=== PATIENT | female | born 1990 | race Caucasian/White ===

== ENCOUNTER 2021-12-06 07:49 | Inpatient (IN) ==
[2021-12-06] MEDS ORDERED: Buffered Lidocaine 1% SYRIN 1 ml INTRADERM ONE (08:26)
[2021-12-06] MEDS ORDERED: Lactated Ringers 1000 ml BAG 1,000 ML IV ONE (08:26)
[2021-12-06] MEDS ORDERED: Oxytocin 10 UNITS/ML 1 ML VIAL IM ONE (12:30)
[2021-12-06] MEDS ORDERED: Oxytocin in LR 20 UNITS/1,000 ML BAG IVPB SCH ×3 (13:08→14:00)
[2021-12-06 13:28] LABS: ABS Lymphocytes 0.7 10^3/ul (1.0-4.8); ABS Monocytes 0.6 10^3/ul (0-0.8); ABS Neutrophils 18.1 10^3/ul (1.5-7.7); Hematocrit 37 % (35-47); Hemoglobin 12.4 g/dL (12.0-16.0); Lymphocyte % 3.6 %; Mean Corpuscular HGB Conc 33 g/dL (31-36); Mean Corpuscular Hemoglobin 31 pg (27-31); Mean Corpuscular Volume 92 fL (80-97); Mean Platelet Volume 10.5 fL (7.4-10.4); Platelet Count 211 10^3/uL (150-450); Red Blood Count 4.03 10^6 /uL (3.70-4.87); Red Cell Distribution Width 13 % (10-15); White Blood Count 19.5 10^3/uL (3.5-10.8)
[2021-12-06] MEDS ORDERED: Lactated Ringers 1000 ml BAG 1,000 ML IV SCH (14:00)
[2021-12-06] MEDS: Dibucaine 1% OINT 28.35 GM TUBE PR PRN (14:11)
[2021-12-06] MEDS: Witch Hazel PAD JAR TOPICAL PRN (14:11)
[2021-12-07 06:52] LABS: ABS Basophils 0.1 10^3/ul (0-0.2); ABS Lymphocytes 1.5 10^3/ul (1.0-4.8); ABS Monocytes 0.7 10^3/ul (0-0.8); ABS Neutrophils 7.6 10^3/ul (1.5-7.7); Eosinophil % 0.4 %; Hematocrit 30 % (35-47); Hemoglobin 10.4 g/dL (12.0-16.0); Lymphocyte % 15.4 %; Mean Corpuscular HGB Conc 35 g/dL (31-36); Mean Corpuscular Hemoglobin 32 pg (27-31); Mean Corpuscular Volume 92 fL (80-97); Mean Platelet Volume 9.6 fL (7.4-10.4); Platelet Count 162 10^3/uL (150-450); Red Blood Count 3.25 10^6 /uL (3.70-4.87); Red Cell Distribution Width 13 % (10-15); White Blood Count 9.9 10^3/uL (3.5-10.8)
[2021-12-07] MEDS ORDERED: SERTRALINE PO SCH (09:00)
[2021-12-07] MEDS: Witch Hazel PAD JAR TOPICAL PRN (20:14)
[2021-12-07] MEDS: Dibucaine 1% OINT 28.35 GM TUBE PR PRN (20:14)
[2021-12-08 08:08] VITALS: BP 114/77
== END 2021-12-08 11:30 | disposition home or self-care (01) | DRG 560 ==
LOC: MCHOBOUT 07:49 → MCHOB 08:17
PROVIDERS: ADMIT Advanced Practice Midwife; ATTEND Advanced Practice Midwife

== ENCOUNTER 2023-12-20 09:44 | Inpatient (IN) ==
[2023-12-20] MEDS ORDERED: Buffered Lidocaine 1% SYRIN 1 ml INTRADERM ONE (10:42)
[2023-12-20] MEDS ORDERED: Prochlorperazine 5 mg/ml 2 ml VIAL (10 mg) IV PRN (10:42)
[2023-12-20] MEDS ORDERED: Lidocaine 1% VIAL 10 MG/ML 30 ML VIAL INJ PRN (10:42)
[2023-12-20] MEDS: Lactated Ringers 1000 ml BAG 1,000 ML IV ONE (11:12)
[2023-12-20 11:24] LABS: ABS Eosinophils 0.1 10^3/uL (0.0-0.5); ABS Lymphocytes 1.5 10^3/uL (1.0-4.8); ABS Monocytes 0.5 10^3/uL (0.0-0.9); ABS Neutrophils 7.6 10^3/uL (1.5-7.6); ABS Nucleated RBC 0.01 10^3/ul; Eosinophil % 0.6 %; Hematocrit 35.6 % (35-45); Hemoglobin 11.8 g/dL (11.5-14.3); Lymphocyte % 15.1 %; Mean Corpuscular Hemoglobin 29.5 pg (27-33); Mean Corpuscular Volume 89.3 fL (80-97); Mean Platelet Volume 10.2 fL (7.5-11.2); Nucleated Red Blood Cells % 0.1 %/100WBC (0.0-0.8); Platelet Count 180 10^3/uL (150-450); Red Blood Count 3.99 10^6/uL (3.63-4.92); Red Cell Distribution Width 13.2 % (12-17); White Blood Count 9.7 10^3/uL (3.8-11.8)
[2023-12-20] MEDS ORDERED: OBEPIDURAL (200 ML) 200 ML EPIDURAL ONE (11:24)
[2023-12-20] MEDS ORDERED: Lidocaine 1.5% EPI 1:200,000 30 ML SDV ONE (11:25)
[2023-12-20] MEDS: Lactated Ringers 1000 ml BAG 1,000 ML IV SCH (11:57)
[2023-12-20] MEDS: OBEPIDURAL (200 ML) 200 ML EPIDURAL SCH (11:59)
[2023-12-20 12:05] LABS: Urine Benzodiazepine Screen None Detected (None Detect); Urine Opiates Screen None Detected (None Detect)
[2023-12-20] MEDS ORDERED: Phenylephrine 40 mcg/mL 10mL (400mcg) SYRINGE IV PUSH PRN ×2 (12:08)
[2023-12-20] MEDS ORDERED: Lactated Ringers 1000 ml BAG 1,000 ML IV ONE (12:08)
[2023-12-20] MEDS ORDERED: Sodium Citrate/Citric Acid LIQ 15 ML UDC PO PRN (12:08)
[2023-12-20 12:45] LABS: Urine Appearance Clear; Urine Bilirubin Negative (Negative); Urine Blood Negative (Negative); Urine Color Yellow; Urine Glucose Negative (Negative); Urine Ketones Negative (Negative); Urine Nitrite Negative (Negative); Urine Protein Trace (Negative); Urine Urobilinogen Negative (Negative)
[2023-12-20] MEDS ORDERED: Lactated Ringers 1000 ml BAG 1,000 ML IV SCH ×2 (13:00→15:00)
[2023-12-20] MEDS ORDERED: Oxytocin in LR 20,000 MILLI.UNIT/1,000 ML BAG IV ONE (13:51)
[2023-12-20] MEDS: Oxytocin in LR 20,000 MILLI.UNIT/1,000 ML BAG IV SCH (14:15)
[2023-12-20] MEDS ORDERED: Glycerin ADULT 2.4 gm SUPP PR PRN (14:30)
[2023-12-20] MEDS ORDERED: Dibucaine 1% OINT 28.35 GM TUBE PR PRN (14:30)
[2023-12-20] MEDS ORDERED: Witch Hazel PAD JAR TOPICAL PRN (14:30)
[2023-12-21 06:58] LABS: ABS Eosinophils 0.1 10^3/uL (0.0-0.5); ABS Monocytes 0.7 10^3/uL (0.0-0.9); ABS Neutrophils 5.1 10^3/uL (1.5-7.6); Eosinophil % 1.3 %; Hematocrit 28.6 % (35-45); Hemoglobin 9.9 g/dL (11.5-14.3); Lymphocyte % 25.2 %; Mean Corpuscular Hemoglobin 30.4 pg (27-33); Mean Corpuscular Hgb Conc 34.8 g/dL (31-36); Mean Corpuscular Volume 87.5 fL (80-97); Mean Platelet Volume 10.1 fL (7.5-11.2); Platelet Count 162 10^3/uL (150-450); Red Blood Count 3.27 10^6/uL (3.63-4.92); Red Cell Distribution Width 13.2 % (12-17); White Blood Count 7.9 10^3/uL (3.8-11.8)
[2023-12-21 12:06] VITALS: BP 115/72
== END 2023-12-21 16:54 | disposition home or self-care (01) | DRG 560 ==
LOC: MCHOBOUT 09:44 → MCHOB 10:44
PROVIDERS: ADMIT Registered Nurse; ATTEND Registered Nurse